=== PATIENT | female | born 1985 | race Caucasian/White ===

== ENCOUNTER 2016-06-21 07:42 | Outpatient (CLI) | payer BC | END 2016-06-21 23:59 | DX: R53.83 Other fatigue (principal); R41.2 Retrograde amnesia; R61 Generalized hyperhidrosis ==

== ENCOUNTER 2017-06-19 10:58 | Outpatient (CLI) | payer OTHER ==
[2017-06-19 11:34] LABS: BASOPHILS % (AUTO) 0.6 %; EOSINOPHILS % (AUTO) 0.9 %; HGB - HEMOGLOBIN 13.5 g/dL (12.0-16.0); LYMPHOCYTES # (AUTO) 1.6 10^3/uL (1.5-3.5); LYMPHOCYTES % (AUTO) 30.3 %; MEAN CORPUSCULAR HEMOGLOBIN 30.5 pg (27.0-31.0); MEAN CORPUSCULAR HGB CONC 33.8 g/dL (32.0-36.0); MEAN CORPUSCULAR VOLUME 90.1 fL (81.0-99.0); MEAN PLATELET VOLUME 8.9 fL (7.9-10.8); MONOCYTES # (AUTO) 0.3 10^3/uL (0.0-1.0); MONOCYTES % (AUTO) 6.3 %; NEUTROPHILS # (AUTO) 3.3 10^3/uL (1.5-6.6); NEUTROPHILS % (AUTO) 61.9 %; PLT - PLATELET COUNT 194 10^3/uL (130-450); RED BLOOD COUNT 4.43 10^6/uL (4.20-5.40); RED CELL DISTRIBUTION WIDTH 13.4 % (12.0-15.0); WHITE BLOOD COUNT 5.4 x10^3/uL (4.8-10.8)
[2017-06-20 11:01] LABS: HEPATITIS C ANTIBODY NON-REACTIVE (NON-REACTIVE)
[2017-06-20 11:02] LABS: HEPATITIS B SURFACE ANTIGEN NON-REACTIVE (NON-REACTIVE)
[2017-06-20 14:11] LABS: HIV AG/AB 4TH GEN NON-REACTIVE (NON-REACTIVE)
== END 2017-06-19 10:59 | disposition home or self-care (01) ==
LOC: LAB 10:58
PROVIDERS: ATTEND Registered Nurse
DX: O09.01 Supervision of pregnancy with history of infertility, first trimester (principal); O12.11 Gestational proteinuria, first trimester
CPT/HCPCS: 36415; 81599; 84144; 84702; 85025; 86762; 86803; 86850; 86900; 86901; 87086; 87340; 87389; 87491; 87591

== ENCOUNTER 2017-06-19 11:00 | Outpatient (CLI) | payer OTHER | END 2017-06-19 11:01 | disposition home or self-care (01) | LOC: LAB.R 11:00 | PROVIDERS: ATTEND Registered Nurse | DX: O09.01 Supervision of pregnancy with history of infertility, first trimester (principal); O12.11 Gestational proteinuria, first trimester | CPT/HCPCS: 87491; 87591 ==

== ENCOUNTER 2017-06-22 14:19 | Outpatient (CLI) | payer OTHER ==
[2017-06-22 14:44] LABS: BILIRUBIN,URINE NEGATIVE (NEGATIVE); GLUCOSE, URINE (UA) NEGATIVE (NEGATIVE); KETONES,URINE (UA) NEGATIVE (NEGATIVE); LEUKOCYTE ESTERASE, URINE TRACE (NEGATIVE); NITRITE,URINE NEGATIVE (NEGATIVE); OCCULT BLOOD,URINE NEGATIVE (NEGATIVE); PROTEIN,URINE NEGATIVE (NEGATIVE); UROBILINOGEN,URINE 0.2 (NORMAL) E.U./dL (NORMAL)
[2017-06-22 14:58] LABS: BACTERIA,URINE None Seen /HPF (None Seen); CLARITY,URINE CLEAR (CLEAR); RBC,URINE 0-5 /HPF (0-5); SQUAMOUS EPITHELIAL CELL,UR MOD Squamous (<= Few); TOTAL PROTEIN,URINE TIMED < 6 mg/dL; TOTAL VOLUME 24HRS,URINE 12050 mL
== END 2017-06-22 14:20 | disposition home or self-care (01) ==
LOC: LAB 14:19
PROVIDERS: ATTEND Registered Nurse
DX: O09.01 Supervision of pregnancy with history of infertility, first trimester (principal); O12.11 Gestational proteinuria, first trimester
CPT/HCPCS: 81001; 84156

== ENCOUNTER 2017-06-25 11:32 | Outpatient (CLI) | payer OTHER | END 2017-06-25 11:33 | disposition home or self-care (01) | LOC: DI 11:32 | PROVIDERS: ATTEND Registered Nurse | DX: R01.1 Cardiac murmur, unspecified (principal) | CPT/HCPCS: 81001; 84156; 93306 ==

== ENCOUNTER 2017-07-04 19:02 | Outpatient (CLI) | payer OTHER ==
--- NOTE | 2017-07-05 14:15 | Ultrasound Report ---
OB FIRST TRIMESTER ULTRASOUND: 07/04/2017 CLINICAL INDICATION: Dating. TECHNIQUE: Transabdominal pelvic ultrasound performed for global evaluation. Transvaginal pelvic ultrasound performed for detailed evaluation. Real-time scanning performed and static images obtained. LAST MENSTRUAL PERIOD 05/10/2017 CLINICAL AGE 7 weeks 6 days US AGE 7 weeks 3 days CRL embryo HEART RATE 167 bpm EDC 02/14/2018 US EDC 02/17/2018 CRL embryo CERVICAL LENGTH closed FINDINGS: The uterus is anteverted. There is a single viable intrauterine gestation present. heart rate is 167 BPM. By crown rump length, the fetus measures 7 weeks 3 days (7 weeks 6 days by LMP). No perigestational hemorrhage is seen. The gestational sac appears regular. The right ovary measures 4.1 x 3.2 x 1.8 cm, and demonstrates a 2 cm corpus luteum. The left ovary measures 3.1 x 2.2 x 2.0 cm, and is unremarkable. No free fluid is present. IMPRESSION: SINGLE VIABLE INTRAUTERINE GESTATION, WITH SIZE IN KEEPING WITH LMP DATING. NO PERIGESTATIONAL HEMORRHAGE. TD: 07/05/2017 12:08 CAPO
== END 2017-07-04 19:03 | disposition home or self-care (01) ==
LOC: DI 19:02
PROVIDERS: ATTEND Registered Nurse
DX: Z36.89 Encounter for other specified antenatal screening (principal)
CPT/HCPCS: 76801; 76817

== ENCOUNTER 2017-07-07 12:11 | Emergency (ER) | payer OTHER ==
[2017-07-07 14:14] LABS: BILIRUBIN,URINE NEGATIVE (NEGATIVE); GLUCOSE, URINE (UA) NEGATIVE (NEGATIVE); KETONES,URINE (UA) NEGATIVE (NEGATIVE); LEUKOCYTE ESTERASE, URINE TRACE (NEGATIVE); NITRITE,URINE NEGATIVE (NEGATIVE); OCCULT BLOOD,URINE NEGATIVE (NEGATIVE); PH,URINE 5.5 PH (5.0-7.5); PROTEIN,URINE NEGATIVE (NEGATIVE); UROBILINOGEN,URINE 0.2 (NORMAL) E.U./dL (NORMAL)
[2017-07-07 14:18] LABS: CLARITY,URINE CLEAR (CLEAR)
[2017-07-07 14:20] LABS: BACTERIA,URINE Few /HPF (None Seen); RBC,URINE 0-5 /HPF (0-5); SQUAMOUS EPITHELIAL CELL,UR MOD Squamous (<= Few)
--- NOTE | 2017-07-07 14:24 | ED Physician Documentation ---
History of Present Illness - Stated complaint Stated Complaint: FLU-LIKE [id number] - Chief complaint Chief Complaint: Abd Pain - History obtained from History obtained from: Patient, Family - History of Present Illness Timing: How many days ago (3) Pain level max: 0 Pain level now: 0 Improved by: nothing Worsened by: nothing - Additonal information Additional information: subjective fever, cough, body aches. pt is 8 weeks . . sent in for flu test by OB. Review of Systems Constitutional: reports: Myalgias. denies: Chills Ears: denies: Ear pain Cardiac: denies: Chest pain / pressure Respiratory: reports: Cough. denies: Wheezing GI: denies: Nausea, Vomiting, Diarrhea Skin: denies: Rash Musculoskeletal: denies: Neck pain, Back pain Neurologic: denies: Focal weakness, Numbness, Headache PD PAST MEDICAL HISTORY - Past Medical History Past Medical History: No : Kidney stones - Present Medications Home Medications: Ambulatory Orders Medication Instructions Recorded Confirmed No Known Home Medications [No 07/07/17 07/07/17 Known Home Medications] - Allergies Allergies/Adverse Reactions: Allergies Allergy/AdvReac Type Severity Reaction Status Date / Time No Known Drug Allergies Allergy Verified 07/07/17 12:21 - Social History Does the pt smoke?: No Smoking Status: Never smoker PD ED PE NORMAL - Vitals Vital signs reviewed: Yes - General General: Alert and oriented X 3, No acute distress - HEENT HEENT: Moist mucous membranes - Neck Neck: Supple, no meningeal sign - Cardiac Cardiac: RRR - Respiratory Respiratory: No respiratory distress, Clear bilaterally - Abdomen Abdomen: Soft, Non tender, Non distended, Other (bedside US with IUP with FHR 152bpm) - Derm Derm: Warm and dry, No rash - Extremities Extremities: No edema, No calf tenderness / cord - Neuro Neuro: Alert and oriented X 3 - Psych Psych: Normal mood, Normal affect Results - Vitals Vitals: Vital Signs - 24 hr 07/07/17 07/07/17 12:17 14:32 Temperature 36.8 C 37.2 C Heart Rate 83 65 Respiratory 18 18 Rate Blood Pressure 138/71 H 119/68 O2 Saturation 100 100 Oxygen O2 Source Room air - Labs Labs: Laboratory Tests 07/07/17 07/07/17 12:25 14:09 Urine Color YELLOW Urine Clarity CLEAR Urine pH 5.5 Ur Specific [place] 1.015 Urine Protein NEGATIVE Urine Glucose (UA) NEGATIVE Urine Ketones NEGATIVE Urine Occult Blood NEGATIVE Urine Nitrite NEGATIVE Urine Bilirubin NEGATIVE Urine Urobilinogen 0.2 (NORMAL) Ur Leukocyte Esterase TRACE H Urine RBC 0-5 Urine WBC 0-3 Ur Squamous Epith Cells MOD Squamous H Urine Bacteria Few Ur Microscopic Review INDICATED Urine Culture Comments NOT INDICATED Influenza A (Rapid) Negative Influenza B (Rapid) Negative Influenza Types A,B Ag - PD MEDICAL DECISION MAKING - ED course Complexity details: reviewed results, re-evaluated patient, considered differential, d/w patient, d/w family ED course: Patient is a 31-year-old female, 1 para 0 approximately 8 weeks who presents to the emergency department with viral syndrome symptoms. Influenza swabs are negative. Urinalysis is clean. She is very well- appearing, nontoxic. No hypoxia. No respiratory distress. We will continue supportive care and follow-up with her doctor. Patient counseled regarding signs and symptoms for which I believe and urgent re-evaluation would be necessary. Patient with good understanding of and agreement to plan and is comfortable going home at this time This document was made in part using voice recognition software. While efforts are made to proofread this document, sound alike and grammatical errors may occur. Departure - Departure Disposition: 01 Home, Self Care Clinical Impression: Viral syndrome Condition: Good Instructions: ED Viral Syndrome Follow-Up: Jus Cottrell, EDIE, MICHELLE [Provider Admit Priv/Credential] - Shawanda Alejandra ARNP [Primary Care Provider] - Within 1 week Comments: Return if you worsen. You flu test is negative today. You can use tylenol at home for fevers. Discharge Date/Time: 07/07/17 14:32
[2017-07-07 14:32] VITALS: BP 119/68
== END 2017-07-07 14:32 | disposition home or self-care (01) ==
LOC: ED 12:11
DX: O26.891 Other specified pregnancy related conditions, first trimester (principal); B34.9 Viral infection, unspecified; Z3A.08 8 weeks gestation of pregnancy
CPT/HCPCS: 81001; 81003; 87086; 87275; 87276; 99282; 99283

== ENCOUNTER 2017-09-25 07:22 | Outpatient (CLI) | payer OTHER ==
--- NOTE | 2017-09-25 16:03 | Ultrasound Report ---
OB ULTRASOUND: 09/25/2017 CLINICAL INDICATION: anatomy. TECHNIQUE: Real-time scanning was performed with scheduling representative static images obtained. LAST MENSTRUAL PERIOD: 05/13/2017 Clinical Age: 19 weeks 2 days US Age: 19 weeks 4 days EFW [place]: 303 grams EFW% Hadlock: 65% Heart Rate: 140 bpm EDC: 02/17/2018 US EDC: 02/15/2018 BPD Had[place]: 19 weeks 2 days; Mean mm 44 HC Hadlock: 19 weeks 4 days; Mean mm 170 AC Hadlock: 19 weeks 3 days; Mean mm 141 FL Hadlock: 19 weeks 6 days; Mean mm 32 Presentation: variable Placental Location: anterior Cervical Length: TA 3.8 cm Amniotic Fluid: NICK 6.3 cm; MVP 3.0 FINDINGS: There is a single viable intrauterine gestation, in variable position. heart rate is 140 BPM. The placenta is anterior, without evidence of previa. Amniotic fluid volume is at the low end of normal, with an NICK of 9.3. By size, the fetus measures 19 weeks 4 days (19 weeks 2 days by initial ultrasound). ANATOMY The following anatomic structures were visualized and appear normal: The intracranial contents, including the ventricles and posterior fossa; the lips and orbits; the spine; the heart, including 4 chamber view and outflow tracts, and diaphragm; the abdominal contents, including the stomach, the bilateral kidneys, and urinary bladder, as well as a normal 3 vessel cord insertion; 4 limbs. No free fluid or adnexal lesion is appreciated. IMPRESSION: SINGLE VIABLE INTRAUTERINE GESTATION, WITH EXPECTED GROWTH FROM PREVIOUS SONOGRAM. NORMAL ANATOMIC SURVEY. TD: 09/25/2017 09:57 [facility]
== END 2017-09-25 07:23 | disposition home or self-care (01) ==
LOC: DI 07:22
PROVIDERS: ATTEND Registered Nurse
DX: Z34.82 Encounter for supervision of other normal pregnancy, second trimester (principal); Z3A.19 19 weeks gestation of pregnancy
CPT/HCPCS: 76811

== ENCOUNTER 2017-11-06 15:32 | Outpatient (CLI) | payer OTHER ==
[2017-11-06 15:44] LABS: HGB - HEMOGLOBIN 11.9 g/dL (12.0-16.0); MEAN CORPUSCULAR HEMOGLOBIN 31.2 pg (27.0-31.0); MEAN CORPUSCULAR HGB CONC 33.2 g/dL (32.0-36.0); MEAN CORPUSCULAR VOLUME 94.1 fL (81.0-99.0); MEAN PLATELET VOLUME 8.4 fL (7.9-10.8); RED BLOOD COUNT 3.82 10^6/uL (4.20-5.40); RED CELL DISTRIBUTION WIDTH 13.1 % (12.0-15.0); WHITE BLOOD COUNT 8.4 x10^3/uL (4.8-10.8)
== END 2017-11-06 15:33 | disposition home or self-care (01) ==
LOC: LAB 15:32
PROVIDERS: ATTEND Nurse Practitioner Obstetrics & Gynecology
DX: Z36.9 Encounter for antenatal screening, unspecified (principal)
CPT/HCPCS: 36415; 85027; 86850

== ENCOUNTER 2017-11-20 11:15 | Outpatient (CLI) | payer OTHER | END 2017-11-20 11:16 | disposition home or self-care (01) | LOC: LAB 11:15 | PROVIDERS: ATTEND Nurse Practitioner Obstetrics & Gynecology | DX: Z36.9 Encounter for antenatal screening, unspecified (principal) | CPT/HCPCS: 36415; 82950 ==

== ENCOUNTER 2018-01-17 10:58 | Outpatient (CLI) | payer OTHER | END 2018-01-17 10:59 | disposition home or self-care (01) | LOC: LAB.R 10:58 | PROVIDERS: ATTEND Nurse Practitioner Obstetrics & Gynecology | DX: Z36.85 Encounter for antenatal screening for Streptococcus B (principal) | CPT/HCPCS: 87077; 87081 ==

== ENCOUNTER 2018-02-12 07:55 | Inpatient (IN) | payer OTHER ==
[2018-02-12] MEDS ORDERED: SODIUM CHLORIDE FLUSH 0.9% 10 ML SYRINGE ONE (08:01)
[2018-02-12] MEDS ORDERED: ACETAMINOPHEN 325 MG TABLET PO PRN (09:00)
[2018-02-12] MEDS ORDERED: SODIUM CHLORIDE FLUSH 0.9% 10 ML SYRINGE IVP PRN (09:00)
[2018-02-12] MEDS ORDERED: LACTATED RINGERS 1,000 ML IV SCH (09:00)
[2018-02-12] MEDS ORDERED: fentaNYL 100 MCG/2 ML VIAL IVP PRN (09:00)
[2018-02-12 09:27] LABS: BASOPHILS % (AUTO) 0.2 %; EOSINOPHILS # (AUTO) 0.1 10^3/uL (0.0-0.7); HGB - HEMOGLOBIN 12.5 g/dL (12.0-16.0); LYMPHOCYTES # (AUTO) 1.4 10^3/uL (1.5-3.5); LYMPHOCYTES % (AUTO) 17.5 %; MEAN CORPUSCULAR HEMOGLOBIN 30.9 pg (27.0-31.0); MEAN CORPUSCULAR HGB CONC 34.8 g/dL (32.0-36.0); MEAN CORPUSCULAR VOLUME 88.9 fL (81.0-99.0); MEAN PLATELET VOLUME 9.3 fL (7.9-10.8); MONOCYTES # (AUTO) 0.5 10^3/uL (0.0-1.0); MONOCYTES % (AUTO) 6.2 %; NEUTROPHILS # (AUTO) 6.2 10^3/uL (1.5-6.6); NEUTROPHILS % (AUTO) 75.1 %; PLT - PLATELET COUNT 184 10^3/uL (130-450); RED BLOOD COUNT 4.06 10^6/uL (4.20-5.40); RED CELL DISTRIBUTION WIDTH 13.5 % (12.0-15.0); WHITE BLOOD COUNT 8.2 x10^3/uL (4.8-10.8)
[2018-02-12] MEDS ORDERED: PENICILLIN G POTASSIUM 5,000,000 UNIT in SODIUM CHLORIDE 0.9% MINIBAG 100 ML IV ONE (09:30)
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
[2018-02-12] MEDS: miSOPROStol 100 MCG TABLET BC SCH ×3 (13:38→22:53)
[2018-02-12] MEDS: SODIUM CHLORIDE FLUSH 0.9% 10 ML SYRINGE IVP SCH ×3 (13:39→19:04)
[2018-02-12] MEDS: PENICILLIN G POTASSIUM 2,500,000 UNIT in SODIUM CHLORIDE 0.9% 100ML 100 ML IV SCH ×3 (14:59→22:53)
[2018-02-12] MEDS ORDERED: ZOLPIDEM 5 MG TABLET PO ONE (19:00)
[2018-02-13] MEDS: miSOPROStol 100 MCG TABLET BC SCH ×4 (06:33→20:02)
--- NOTE | 2018-02-13 07:55 | PROVIDER PROGRESS NOTE ---
Labor Progress Note - Uterine Monitoring Uterine Monitoring Mode: positive: External toco Contraction Frequency (min/apart): 2-6 Contraction Intensity: positive: Mild Uterine Resting Tone: positive: Soft - Monitoring Monitor Mode: positive: External ultrasound Heart Rate Baseline: 135 Heart Rate Variability: positive: Moderate (6-25 bmp) Accelerations: positive: Present, 15x15 Decelerations: positive: None Strip Review: positive: Category I - Labor Progress Note Labor Progress Note/Additional Text: S: Laying right side in bed with supportive at the bedside. She states she is feeling some mild discomfort with contractions and is able to appreciate each contractions. She feels she is coping well. Pt reports significant discomfort at IV site. She states the site of her IV is more uncomfortable than any contraction. Overall mood is good. Declines SVE secondary to degree of discomfort with first examination. Denies VB or Lof. Reports +FM. O: BP 112/67, HR 77, RR 17 FHR baseline 135, moderate variability, + accels, no decels. Contractions palpate mild every 2-6 minutes with soft resting tone. SVE deferred A: 32yo @ 40.0wks gestation by first trimester ultrasound Pre-induction cervical ripening with 50mcg BC misoprostol q 4 hours x 3 doses GBS positive - receiving penicillin via IV for prophylaxis per protocol P: Will attempt secondary IV placement due to significant patient discomfort Will d/c penicillin infusion until onset of active labor due to significant patient discomfort during infusion Continue pre-induction cervical ripening with 50mcg misoprostol q 4 hours Continuous monitoring Reviewed plan of care with patient, , and RN assigned to her care and no concerns or complaints identified. N2O with SVE prior to next dose of misoprostol Epidural per maternal request. Anticipate spontaneous vaginal delivery.
--- NOTE | 2018-02-13 16:30 | PROVIDER PROGRESS NOTE ---
Labor Progress Note - Uterine Monitoring Uterine Monitoring Mode: positive: External toco Contraction Frequency (min/apart): 3-5 Contraction Intensity: positive: Mild Uterine Resting Tone: positive: Soft - Monitoring Monitor Mode: positive: External ultrasound Heart Rate Baseline: 140 Heart Rate Variability: positive: Moderate (6-25 bmp) Accelerations: positive: Present, 15x15 Decelerations: positive: None Strip Review: positive: Category I - Vaginal Exam Dilation (in cm): 3 Effacement (%): 50 Station: -3 Cervical Position: Posterior - Labor Progress Note Labor Progress Note/Additional Text: S: Pt laying in bed with and agricultural consultant supportive at the bedside. She has questions about how to proceed at this point in the induction process. States she is considering epidural and initiation of pitocin vs continuation of misoprostol and taking Ambien tonight for improved sleep. Pt states her inability to sleep last night was largely due to discomfort at IV site as penicillin was infusing. She feels she will sleep better tonight with deferring the penicillin infusion until active labor or initiation of pitocin. Lengthy discussion about most appropriate course of action at this point. All options reviewed and pt and desire to continue with misoprostol and PO Ambien tonight. She states she knows they were prepped and prepared to have a prolonged stay secondary to cervical ripening but she feels somewhat discouraged with her progress thus far despite nursing and provider reassurance about her progression. O: BP 118/82, HR 119, RR 17 Contractions palpate mild every 2-5 minutes lasting 30-60 seconds with soft resting tone. FHR baseline 145, moderate variability, + accels, no decels SVE 3/50/-3, vertex, posterior, soft A: 32yo @ 39.6wks gestation by LMP c/w first trimester ultrasound Pre-induction cervical ripening with 50mcg BC misoprostol q 4 hours x 6 doses GBS positive - penicillin for GBS prophylaxis per protocol - Pt received 1 loading dose followed by 4 additional doses per protocol -subsequent doses deferred until active labor or SROM secondary to significant IV irritation Category I FHR P: Continue pre-induction cervical ripening with 50mcg BC misoprostol q 4 hours throughout the night. Hold AM dose for patient evaluation by provider. Will likely proceed with epidural placement and colindres bulb vs initiation of pitocin Continuous monitoring. N2O per patient request for pain management. Pt, , agricultural consultant, and RN at the bedside all verbalized understanding and agree to above plan. They deny further questions or concerns today.
[2018-02-13] MEDS ORDERED: ZOLPIDEM 5 MG TABLET PO ONE (19:00)
--- NOTE | 2018-02-13 22:29 | PROVIDER PROGRESS NOTE ---
Labor Progress Note - Uterine Monitoring Uterine Monitoring Mode: positive: External toco Contraction Frequency (min/apart): 2-5 Contraction Intensity: positive: Moderate Uterine Resting Tone: positive: Soft - Monitoring Monitor Mode: positive: External ultrasound Heart Rate Baseline: 150 Heart Rate Variability: positive: Moderate (6-25 bmp) Accelerations: positive: Present, 15x15 Decelerations: positive: None Strip Review: positive: Category I - Labor Progress Note Labor Progress Note/Additional Text: S: Pt sitting at bedside on exercise ball with and president ergonomic consulting supportive at the bedside. Pt reported a gush of clear vaginal fluid at 2054. She desires to use Jacuzzi prior to receiving epidural for pain management. Pt desires to labor unmedicated at this time and will consider epidural for pain management with initiation of pitocin per protocol. O: BP 118/82, HR 119, RR 17 Contractions palpate moderate every 2-5 minutes lasting 40-60 seconds with soft resting tone FHR baseline 150, moderate variability, + accels, no decels SVE deferred A: 32yo @ 39.6wks gestation by L=first trimester U/S GBS positive -initiation of penicillin per protocol for prophylaxis Has received misoprostol 50mcg BC q 4 hours for pre-induction cervical ripening x 7 doses for adequate cervical ripening P: Continuous monitoring Initiation of pitocin with titration per protocol 4 hours after last dose of misoprostol Encouraged ambulation and frequent position changes. Epidural per maternal request. Anticipate spontaneous vaginal delivery.
[2018-02-13] MEDS ORDERED: fent/BUPIV 2 MCG/0.125% 250 ML EP ONE (23:20)
--- NOTE | 2018-02-14 00:25 | ANESTHESIA ---
Pre-Anesthesia VS, & Labs - Diagnosis IUP term labor desiring epidural - Procedure Lumbar Epidural Placement Vital Signs: Temp Pulse Resp BP Pulse Ox 36.6 C 77 17 112/67 02/13/18 05:00 02/13/18 05:00 02/13/18 05:00 02/13/18 05:00 Height 5 ft 6 in Weight (kg) 100.698 kg Body Mass Index 25.8 - Is Patient ?: Yes - Lab Results Current Lab Results: Laboratory Tests 02/12/18 09:00: WBC 8.2, RBC 4.06 L, Hgb 12.5, Hct 36.1 L, MCV 88.9, MCH 30.9, MCHC 34.8, RDW 13.5, Plt Count 184, MPV 9.3, Neut # (Auto) 6.2, Lymph # (Auto) 1.4 L, [place] # (Auto) 0.5, Eos # (Auto) 0.1, Baso # (Auto) 0.0, Absolute Nucleated RBC 0.00, Nucleated RBC % 0.0 Fish Bones: 02/12/18 09:00 Home Medications and Allergies Home Medications: Ambulatory Orders Medication Instructions Recorded Confirmed No Known Home Medications 07/07/17 07/07/17 Active Medications Acetaminophen (Tylenol) 650 mg PO Q6H PRN PRN Reason: Pain or Fever Fentanyl (Fentanyl) 50 mcg IVP Q1H PRN PRN Reason: PAIN Lactated Ringer's (Lr) 1,000 mls @ 100 mls/hr IV .Q10H BERNARDO Penicillin G Potassium 2,500, (000 unit/ Sodium Chloride) 100 mls @ 200 mls/hr IV Q4H [facility] Last Infusion: 02/13/18 07:40 Dose: Infused Misoprostol (Cytotec) 50 mcg BC Q4HR [facility] Last Admin: 02/13/18 20:02 Dose: 50 mcg Sodium Chloride (Normal Saline Flush 0.9%) 10 ml IVP 0100,0900,1700 [facility] Last Admin: 02/12/18 19:04 Dose: 10 ml Sodium Chloride (Normal Saline Flush 0.9%) 10 ml IVP PRN PRN PRN Reason: NEEDED PER PROVIDER ORDERS No Known Home Medications 07/07/17 Allergies/Adverse Reactions: Allergies Allergy/AdvReac Type Severity Reaction Status Date / Time No Known Drug Allergies Allergy Verified 07/07/17 12:21 Anes History & Medical History - Anesthetic History Anesthesia Complications: reports: No previous complications Family history of Anesthesia Complications: Denies Family history of Malignant Hyperthermia: Denies - Medical History Cardiovascular: reports: None Pulmonary: reports: None Gastrointestinal: reports: None Urinary: reports: Kidney stones Smoking Status: Never smoker - Surgical History Urologic: Ureterolithotomy (stones) Orthopedic: Other (knee scope) - Obstetrical History : 1 Parity: 0 Events: positive: None Exam General: Alert, Oriented x3, Cooperative, No acute distress Neck Mobility: Normal Mallampati classification: II Cardiovascular: Regular rate Plan Anesthesia Type: Epidural Consent for Procedure(s) Verified and Reviewed: Yes Code Status: Attempt Resuscitation ASA classification: 2-Mild systemic disease Is this case an emergency?: No
[2018-02-14] MEDS ORDERED: NALBUPHINE 10 MG/ML AMP IVP PRN (00:32)
[2018-02-14] MEDS ORDERED: fent/BUPIV 2 MCG/0.125% 250 ML EP PRN (00:32)
[2018-02-14] MEDS ORDERED: ONDANSETRON 4 MG/2 ML VIAL IVP PRN (00:32)
[2018-02-14] MEDS ORDERED: NALOXONE 0.4 MG/ML VIAL IVP PRN (00:32)
[2018-02-14] MEDS ORDERED: ePHEDrine 50 MG/ML VIAL IVP PRN (00:32)
[2018-02-14] MEDS ORDERED: METOCLOPRAMIDE 10 MG/2 ML VIAL IVP PRN (00:32)
[2018-02-14] MEDS ORDERED: LACTATED RINGERS 500 ML IV ONE (00:32)
[2018-02-14] MEDS ORDERED: diphenhydrAMINE INJ 50 MG/ML VIAL IVP PRN (00:32)
[2018-02-14] MEDS: PENICILLIN G POTASSIUM 2,500,000 UNIT in SODIUM CHLORIDE 0.9% 100ML 100 ML IV SCH ×2 (01:22→05:13)
[2018-02-14] MEDS ORDERED: LIDOCAINE 2% URO-JET 5 ML SYRINGE UR ONE (01:36)
[2018-02-14] MEDS ORDERED: OXYTOCIN/SODIUM CHLORIDE 500 ML IV ONE (04:13)
[2018-02-14] MEDS ORDERED: LIDOCAINE 1% 50 ML MDV ONE (04:13)
--- NOTE | 2018-02-14 04:44 | PROVIDER PROGRESS NOTE ---
Labor Progress Note - Uterine Monitoring Uterine Monitoring Mode: positive: External toco Contraction Frequency (min/apart): 2-3 Contraction Intensity: positive: Strong Uterine Resting Tone: positive: Soft - Monitoring Monitor Mode: positive: External ultrasound Heart Rate Baseline: 140 Heart Rate Variability: positive: Minimal (0-5 bpm) Accelerations: positive: Absent Decelerations: positive: None Strip Review: positive: Category I - Vaginal Exam Dilation (in cm): 10 Effacement (%): 100 Station: 0 - Labor Progress Note Labor Progress Note/Additional Text: I was called to the bedside by OB RN secondary to patient discomfort and difficulty coping with contractions in addition to recurrent variable and late decelerations with periods of minimal variability. Richard Jones CRNA at the bedside working to achieve adequate pain control with second epidural placement. Upon my arrival patient was more comfortable with epidural and able to cope with her contractions more effectively. S: Patient more comfortable with repositioning and second epidural placement. She has been able to rest through contractions with greater ease. She states she is feeling "out of it" and is hoping to be able to nap prior to active pushing. and dictating machine typist supportive at the bedside. O: BP 103/62, HR 84, RR 17; Pt appears groggy. FHR baseline 140, moderate variability with intermittent periods of minimal variability. Periods of Category II tracing secondary to decreased variability and recurrent late and variable decelerations - overall reassuring. Contractions palpate strong every 2-4 minutes lasting 60-120 seconds with soft resting tone. SVE 10/100/0 at 0400 A: 32yo @ 40.0wks gestation by LMP Active labor GBS positive FHR Category I with intermittent periods of Category II - overall reassuring P: Continue expectant management and allow patient to labor down secondary to maternal desire and fatigue Continuous monitoring Anticipate spontaneous vaginal delivery.
[2018-02-14] MEDS ORDERED: HYDROCORTISONE/PRAMOXINE 10 GM PR PRN (08:48)
[2018-02-14] MEDS ORDERED: OXYTOCIN/SODIUM CHLORIDE 250 ML IV ONE (08:48)
--- NOTE | 2018-02-14 09:05 | DELIVERY NOTE ---
Delivery Note - Labor Labor: positive: Other - Infant Delivery Method Delivery Method: positive: Spontaneous vaginal delivery - Presentation Presentation: positive: Vertex, JUAN JOSE - left occiput anterior - Nuchal Cord Nuchal Cord: positive: Present, Reduced - Amniotic Fluid Description Amniotic Fluid Description: positive: Clear - Episiotomy Type Episiotomy Type: positive: None - Laceration Laceration: positive: 1st degree - Suture Suture Type: positive: Vicryl Suture Size: positive: 3-0 - Delivery Outcome Delivery Outcome: positive: Livebirth - : positive: Placed in direct skin contact with mother, Bulb syringe, Stimulated, Warren used sex: positive: Female - Cord Cord: positive: 3 vessels - Placenta Placenta: positive: Intact, Spontaneous - Estimated Blood Loss Estimated Blood Loss (in cc): 200 - Post Delivery Events Post Delivery Events: positive: No post delivery events - Delivery Comments (Free Text/Narrative) Delivery Comments (Free Text/Narrative): Labor: This 32yo @ 40.0wks gestation by LMP presented on 02/12/2018 0800 for logistic IOL. Cervix was 1/50/-3, posterior, vertex. FHR pattern demonstrated a baseline 140s in a Category I pattern throughout. She received 50mcg BC misoprostol q 4 hours for a total of 7 doses. In addition she received penicillin q 4 hours for GBS prophylaxis per protocol. SROM occurred at 2044 on 02/13/2018 and was noted to be a moderate amount of clear fluid. Epidural placed upon maternal request. Pt progressed to c/c/0 station at 0400. She was allowed to labor down until 0625 when she felt increased vaginal and rectal pressure and head was noted to be at a +2 station. : Normal of viable female named Chadwick on 02/14/2018 at 0826. Nuchal x1 easily reduced. The was placed on maternal abdomen, stimulated, dried, and placed skin to skin. 's were 8/9 at 1 and 5 min respectively. The umbilical cord was allowed to stop pulsating at which time it was doubly clamped by CNM and cut by FOB. Cord blood was obtained. Placenta delivered spontaneously and intact at 0831. 3VC. EBL 200mL. Fourth stage: Uterine fundus firm and there is no excessive bleeding. The perineum, vagina, and cervix were inspected and noted to have a small, 1cm vaginal laceration immediately inside introitus. Laceration was repaired using a 3-[address]-1 needle in standard fashion under sterile conditions. Vaginal examination following repair was done. Tissues well approximated. initiated. Family bonding well. Both mother and baby were left in stable condition.
[2018-02-14] MEDS: ACETAMINOPHEN 500 MG TABLET PO PRN ×2 (09:30→18:04)
[2018-02-14] MEDS: IBUPROFEN 800 MG TABLET PO SCH ×3 (09:30→21:21)
[2018-02-14] MEDS: SODIUM CHLORIDE FLUSH 0.9% 10 ML SYRINGE IVP SCH ×3 (10:31→11:07)
[2018-02-14] MEDS: WITCH HAZEL/GLYCERIN 1 EACH MED..PAD TOP PRN (10:36)
[2018-02-14] MEDS: LACTATED RINGERS 1,000 ML IV SCH ×2 (11:07→19:01)
[2018-02-14] MEDS: CYCLOBENZAPRINE 10 MG TABLET PO PRN (19:15)
[2018-02-15] MEDS: ACETAMINOPHEN 500 MG TABLET PO PRN ×4 (00:18→19:17)
[2018-02-15] MEDS: CYCLOBENZAPRINE 10 MG TABLET PO PRN ×3 (03:25→19:17)
[2018-02-15] MEDS: IBUPROFEN 800 MG TABLET PO SCH ×3 (07:16→19:17)
[2018-02-15] MEDS: SODIUM CHLORIDE FLUSH 0.9% 10 ML SYRINGE IVP SCH ×3 (07:44→18:40)
[2018-02-15] MEDS: LACTATED RINGERS 1,000 ML IV SCH ×2 (07:46→18:40)
[2018-02-15] MEDS ORDERED: RHO(D) IMMUNE GLOBULIN 300 MCG SYRINGE IM ONE (09:59)
[2018-02-15] MEDS ORDERED: MEASLES,MUMPS & RUBELLA VACC 0.5 ML VIAL SUBQ ONE (09:59)
--- NOTE | 2018-02-15 10:00 | Discharge Plan ---
Discharge Plan Disposition: 01 Home, Self Care Condition: Good Diet: Regular Activity Restrictions: No Restrictions Shower Restrictions: No Driving Restrictions: No Weight Bearing: Full Weight No Smoking: If you smoke, Please STOP! Call for help. Follow-up with: Cheyenne Chinchilla CNM, ARNP [Provider Admit Priv/Credential] -
--- NOTE | 2018-02-15 10:06 | PROVIDER PROGRESS NOTE ---
Subjective - Subjective Subjective: FINAL PROGRESS NOTE: S: Bonding well with baby. without difficulty with the exception of moderate nipple discomfort which improves throughout feed. Bleeding decreased and is light. Pain well controlled with oral medications other than she c/o significant neck and shoulder discomfort which required flexaril with improvement. Perineum comfortable. Allan supportive at the bedside. They desire to be discharged home today. O: BP 110/58, T 36.6, HR 81, RR 16 Heart RRR w/o M/G/R, lungs CTAB, abdomen soft and nontender with fundus firm at U-1. Bilateral LE's trace edema. Perineum intact and repair without edema. A: 32yo -->P1 s/p TSVD of viable female infant First degree perineal laceration - intact GBS positive - s/p penicillin per protocol for GBS prophylaxis Rh neg - infant Rh pos MMR equivocal P: Reviewed care and warning signs/when to present for further evaluation Rx for All purpose nipple ointment and flexaril handwritten and provided to pt Rhogam and MMR vaccination ordered to be administered prior to pt discharge Planning to use condoms for contraception Will f/u with myself at [facility] in 1 week for support visit, in 3 weeks for routine visit, and in 8 weeks for [place] well woman exam. All questions answered and pt and both verbalized understanding and agree to above plan. They deny further questions or concerns at this time. Objective - Vital Signs/Intake & Output Vital Signs: Vital Signs x48h Temp Pulse Resp BP Pulse Ox 02/15/18 08:09 36.6 C 81 16 110/58 L 100 02/15/18 03:16 36.6 C 78 16 117/64 99 Intake & Output: Intake & Output 02/12/18 02/13/18 02/14/18 02/15/18 23:59 23:59 23:59 23:59 Intake Total 300 600 950 Output Total 1950 Balance 300 600 -1000 - Lab Results Fish Bones: 02/12/18 09:00 Other Labs: Lab Results x24hrs 02/14/18 Range/Units 11:50 Blood Type O NEGATIVE Maternal Bleed NEGATIVE (NEGATIVE)
[2018-02-15] MEDS: WITCH HAZEL/GLYCERIN 1 EACH MED..PAD TOP PRN (22:21)
[2018-02-16] MEDS: IBUPROFEN 800 MG TABLET PO SCH ×3 (01:50→13:56)
[2018-02-16] MEDS: ACETAMINOPHEN 500 MG TABLET PO PRN ×3 (01:51→13:55)
[2018-02-16] MEDS: CYCLOBENZAPRINE 10 MG TABLET PO PRN (03:22)
--- NOTE | 2018-02-16 08:02 | DISCHARGE SUMMARY ---
Physician: MICHELLE Ruelas DATE OF ADMISSION: 02/13/2018 DATE OF DISCHARGE: 02/16/2018 DIAGNOSES ON ADMISSION 1. A 32-year-old, G1, P-0-0-0, at 39 and 5 weeks' gestation by first trimester ultrasound. 2. Rh negative. 3. Group B streptococcus (GBS) positive. 4. Logistic induction of labor. DIAGNOSES ON DISCHARGE 1. A 32-year-old, G1, P1-0-0-1, status post spontaneous vaginal delivery on 02/15/2018. 2. RhoGAM and MMR administered 02/15/2018. 3. Normal recovery. BRIEF HISTORY: She is a patient at [facility], who presented on 02/12/2018, for elective induction of labor. Upon arrival, her cervix was noted to be 1 cm dilated, 50% effaced, at a -3 station, in a vertex position. She received pre-induction cervical ripening with 50 mcg of buccal misoprostol every 4 hours for a total of 7 doses. She also received penicillin per protocol for GBS prophylaxis. Spontaneous rupture of membrane occurred at 2045 on 02/13/2018. Epidural placed upon maternal request. The patient progressed to complete and pushing at 0400 on 02/14/2018. She spontaneously delivered a viable female infant, named Espinoza, on 02/14/2018 at 0826. Apgars were 8 and 9 at one and five minutes respectively. The perineum, vagina, and cervix were inspected and noted to have a first-degree laceration, which was repaired, using a 3-0 Vicryl on a CT1 needle, in a standard fashion under sterile conditions. Estimated blood loss 200 mL. She has been doing well in her course. She is ambulating and tolerating a regular diet. She is urinating without difficulty, and her lochia is normal. Pain is well controlled with oral medications. She is having some increased neck and shoulder discomfort, likely secondary to second stage. She will be discharged home today on day #1 with instructions to call if she has any worsening fevers, chills, abdominal pain, foul smelling vaginal lochia, increased vaginal bleeding. She intends to follow up with myself at [facility] in 1 week for support visit and then in 3 weeks for routine visit. Prescriptions for all-purpose nipple ointment and Flexeril handwritten and provided to the patient. is supportive at the bedside and present for discharge instructions. Both the patient and verbalized understanding and agree to above plan, and they deny further questions or concerns at this time. TD: 02/15/2018 10:18 REVISED: CORRECTION TO DISCHARGE DATE REMOVAL OF TERRITORY ACCOUNT MANAGER FLAG 02/19/18 jll Orig. signed 02/16/2018 1009 MTDD
--- NOTE | 2018-02-16 11:33 | PROVIDER PROGRESS NOTE ---
Subjective - Subjective Subjective: FINAL PROGRESS NOTE: S: Pt decided to stay a second night secondary to maternal head and neck discomfort. She was evaluated by construction project coordinator anesthesia yesterday to f/o spinal headache and it was determined that the cause of her discomfort was likely muscular. Flexaril has not improved her discomfort. Pt states her headache resolved when she lays horizontal and is unbearable when she is sitting up. She denies visual disturbances and edema. without difficulty. Vaginal beeding decreased and is light. Perineum comfortable. Mood is good. supportive at the bedside. O: BP 127/82, T 36.8, HR 77, RR 16 Heart RRR w/o M/G/R, lungs CTAB, abdomen soft and nontender with fundus firm at U-2. Perineum comfortable. Bilateral LE"s no edema. A: 32yo -->P1 PPD#2 s/p TSVD of viable female infant first degree perineal laceration - intact Spinal headache evaluation and treatment pending P: Reviewed self care and warning s/sx and when to present. Zane Alfonso CRNA notified and plans to come evaluate the patient for spinal headache and debt counselor her about blood patch. Pt and feel they would like to try the blood patch. She intends to f/u with myself at [facility] in 1 week for support visit and in 3 weeks for routine pp visit. Objective - Vital Signs/Intake & Output Vital Signs: Vital Signs x48h Temp Pulse Resp BP Pulse Ox 02/16/18 08:00 36.8 C 77 16 127/82 H 98 Intake & Output: Intake & Output 02/13/18 02/14/18 02/15/18 02/16/18 23:59 23:59 23:59 23:59 Intake Total 600 950 Output Total 1950 Balance 600 -1000 - Lab Results Fish Bones: 02/12/18 09:00
[2018-02-16 13:38] VITALS: BP 132/75
--- NOTE | 2018-02-16 15:58 | Labor Flowsheet ---
Labor Flowsheet Datetime Report Generated by CPN: 02/16/2018 15:58 Datetime: 02/16/2018 13:40 VITAL SIGNS NBP Sys/Blanca/Mean (mmHg): 133 : 76 : 89 Pulse: 71 LaborFlag: Labor Datetime: 02/16/2018 13:39 SpO2 (%): 99 Datetime: 02/14/2018 08:26 UTERINE ACTIVITY Monitor Mode: External Frequency (min): 1.5-2.5 Quality: Strong Duration (sec): 70-100 Pattern: Normal: <= 5 Contractions in 10 Minutes Resting Tone (Palpate): Relaxed ASSESSMENT A Monitor Mode: External US FHR Baseline Rate : 150 Variability: Moderate 6-25 bpm Accelerations: None Decelerations: Variable Datetime: 02/14/2018 08:20 STAGE 2 Pushing: Coached on Pushing Pushing Position: Pushing with Contractions Datetime: 02/14/2018 08:10 Pushing Progress: Caput Noted Datetime: 02/14/2018 08:00 Category: Category II Datetime: 02/14/2018 07:24 COMMUNICATION Communication: RN at Bedside Communication Comments: Report given to Susie, RN @ bedside Datetime: 02/14/2018 07:00 PAIN Pain Scale: 5 Pain Presence: Intermittent Pain Type: Contraction Pain Location: Perineum Datetime: 02/14/2018 06:34 VAGINAL EXAM Dilatation (cm): 10.0 Effacement (%): 100 Station: 2 Exam by: A. Renée, CNM Datetime: 02/14/2018 06:28 Notification Reason: Labor Status Datetime: 02/14/2018 06:16 Pain Coping: Breathing Through Contractions Pain Assessment Comments: Increase lower pressure Datetime: 02/14/2018 06:06 Monitor Interventions for UA: [place] Adjusted Datetime: 02/14/2018 05:53 Vaginal Exam Comments: Called to bedside d/t increased pressure and feel to have bowel movement. Pr actice pushed w/ctx. Pt unable to move babys head when pushing. continuing to labor down Datetime: 02/14/2018 05:35 Patient Care Comments: Pt sitting high fowlers with legs butterflied Datetime: 02/14/2018 05:23 Pain Goal: 8 Comfort Measures: Breathing/Relaxation Datetime: 02/14/2018 05:21 I/O Interventions: Straight Cath (ml) @ 225 Datetime: 02/14/2018 05:00 Vibroacoustic Stim: Datetime: 02/14/2018 04:52 MEDICATIONS Antiemetics/Antacids: Zofran (mg) @ 4 Datetime: 02/14/2018 04:00 Temperature (C): 36.8 Temperature Route: Oral Comments: deceleration after laying on back for SVE Datetime: 02/14/2018 03:46 Patient Position/Activity: Right Lateral Datetime: 02/14/2018 03:40 Epidural Procedure: Loading Dose Datetime: 02/14/2018 03:20 ANESTHESIA Anesthesia Plans: Epidural Epidural Positioning: Sitting Datetime: 02/14/2018 03:05 Pain Management: Epidural; Pain Scale/Goals; Comfort Measures Datetime: 02/14/2018 01:00 Actions for Decelerations: Side to Side; IV Bolus Datetime: 02/14/2018 00:42 Anesthesia Comments: Notified provider of pts nausea and low BP, ephedrine given Datetime: 02/14/2018 00:39 Nausea/Vomiting: Present Datetime: 02/14/2018 00:29 Anesthesia Level Check: T8- Ribs Datetime: 02/14/2018 00:17 Monitor Interventions for FHR: Ultrasound Adjusted Datetime: 02/13/2018 22:45 PATIENT CARE IV/Blood Work: IV Started Datetime: 02/13/2018 21:44 Hygiene: Complete Bath Datetime: 02/13/2018 21:35 Stage of : Labor Datetime: 02/13/2018 21:30 Pain Relief Measures: Comfort Measures Datetime: 02/13/2018 21:26 Provider Reviewed Strip: Yes Datetime: 02/13/2018 20:46 Membrane Status: Ruptured Membranes Rupture Method: Spontaneous Amniotic Fluid Color: Clear Amniotic Fluid Amount: Small Datetime: 02/13/2018 20:04 Cervical Ripening Agents: Cytotec @ 50 Datetime: 02/13/2018 19:59 MATERNAL ASSESSMENT Level of Consciousness: Fully Conscious DTR's/Clonus: DTRs 2+; No Clonus Headache: Denies Breath Sounds, Left: Clear and Equal Breath Sounds, Right: Clear and Equal RUQ Epigastric Pain: Denies TEACHING Instructional Method: Verbal Plan of Care: Plan of Care Discussed Datetime: 02/13/2018 19:54 Oxygen Method: Room Air Datetime: 02/13/2018 19:27 FHR Baseline Changes: Tachycardia Datetime: 02/13/2018 19:01 Contraction Comments: inverted ctx Datetime: 02/13/2018 15:51 Cervix, Consistency: Soft Cervix, Position: Posterior Datetime: 02/13/2018 13:52 Respirations: 17 Datetime: 02/12/2018 19:45 Strip Reviewed by: Melina Gates RN Unit Routine: [place] to Room; Monitoring; IV Pumps; Safety/Fall Risk Prevention; Bathroom [facility] Labor/Induction: Labor Stages; Cervical Ripening Medications: Cervical Ripening PTL/PROM: Hydration Related: Activity and Rest Grief Support: Medications Provider Notified (Name): Datetime: 02/12/2018 13:38 Medication Comments: buccal
== END 2018-02-16 15:50 | disposition home or self-care (01) | DRG 775 ==
LOC: WFO 07:55 → FBP 07:57 → WFO 08:59 → FBP 09:00 → OBSVTOIN 02-13 21:38
PROVIDERS: ADMIT Nurse Practitioner Obstetrics & Gynecology; ATTEND Nurse Practitioner Obstetrics & Gynecology
PROC: 10E0XZZ Delivery of Products of Conception, External Approach (ICD-10-PCS; principal; 2018-02-14)
PROC: 0HQ9XZZ Repair Perineum Skin, External Approach (ICD-10-PCS; 2018-02-14)
PROC: 3E0R3GC Introduction of Other Therapeutic Substance into Spinal Canal, Percutaneous Approach (ICD-10-PCS; 2018-02-16)
DX: O99.824 Streptococcus B carrier state complicating childbirth (principal); O26.893 Other specified pregnancy related conditions, third trimester; O70.0 First degree perineal laceration during delivery; O69.9XX0 Labor and delivery complicated by cord complication, unspecified, not applicable or unspecified; Z67.41 Type O blood, Rh negative; O89.4 Spinal and epidural anesthesia-induced headache during the puerperium; Z3A.39 39 weeks gestation of pregnancy; Z37.0 Single live birth
CPT/HCPCS: 83033; 85025; 86900; 86901; 96365; 96366

== ENCOUNTER 2023-03-19 15:55 | Emergency (ER) | payer OTHER ==
[2023-03-19 16:09] VITALS: O2SAT 100
[2023-03-19 16:14] LABS: BILIRUBIN,URINE NEGATIVE (NEGATIVE); GLUCOSE, URINE (UA) NEGATIVE (NEGATIVE); KETONES,URINE (UA) NEGATIVE (NEGATIVE); LEUKOCYTE ESTERASE, URINE NEGATIVE (NEGATIVE); NITRITE,URINE NEGATIVE (NEGATIVE); OCCULT BLOOD,URINE NEGATIVE (NEGATIVE); PH,URINE 7.5 PH (5.0-7.5); PROTEIN,URINE NEGATIVE (NEGATIVE); UROBILINOGEN,URINE 1 (NORMAL) E.U./dL (NORMAL)
[2023-03-19 16:15] LABS: CLARITY,URINE CLEAR (CLEAR)
--- NOTE | 2023-03-19 16:38 | ED Physician Documentation ---
PD HPI ABD PAIN - Stated complaint Stated Complaint: R FLANK PX - Chief complaint Chief Complaint: Abd Pain - History obtained from History obtained from: Patient - Additional information Additional information: 37-year-old female presents with right flank pain for the last several days. The patient has a history of kidney stones feels similar. She has required a stent in the past so has passed several on her own. Pain is fairly stinging in the right flank, does not radiate. It did go away for a day or so and then returned. She does not have any dysuria urgency or frequency, no difficulty s tarting urine flow. She has not had any fever or chills, no nausea or vomiting. She took ibuprofen without relief in her pain. Review of Systems Constitutional: reports: Reviewed and negative Cardiac: reports: Reviewed and negative Respiratory: reports: Reviewed and negative GI: reports: Abdominal Pain. denies: Abdominal Swelling, Nausea, Vomiting, Constipation, Diarrhea : denies: Dysuria, Frequency, Hesitancy, Unable to Void Skin: reports: Reviewed and negative Musculoskeletal: reports: Reviewed and negative PD PAST MEDICAL HISTORY - Past Medical History Past Medical History: Yes Cardiovascular: None Respiratory: None GI: None : Kidney stones - Past Surgical History Ortho: Other (knee scope) - Present Medications Home Medications: Ambulatory Orders Medication Instructions Recorded Confirmed No Known Home Medications 07/07/17 03/19/23 - Allergies Allergies/Adverse Reactions: Allergies Allergy/AdvReac Type Severity Reaction Status Date / Time No Known Drug Allergies Allergy Verified 07/07/17 12:21 - Social History Does the pt smoke?: No Smoking Status: Never smoker PD ED PE NORMAL - Vitals Vital signs reviewed: Yes - General General: Alert and oriented X 3, No acute distress, Well developed/nourished - HEENT HEENT: Atraumatic, Moist mucous membranes - Cardiac Cardiac: RRR, No murmur - Abdomen Abdomen: Normal bowel sounds, Soft - Back Back: No CVA TTP, Other (I could not induce the pain.) - Derm Derm: Normal color, Warm and dry Results - Vitals Vitals: Vital Signs - 24 hr 03/19/23 03/19/23 03/19/23 16:01 17:19 17:36 Temperature 36.1 C L 36.7 C Heart Rate 86 70 Respiratory 16 17 16 Rate Blood Pressure 138/89 H 131/82 H O2 Saturation 100 100 Oxygen O2 Source Room air - Labs Labs: Laboratory Tests 03/19/23 03/19/23 03/19/23 16:07 16:45 16:45 WBC 5.9 RBC 4.69 Hgb 14.1 Hct 42.7 MCV 91.0 MCH 30.1 MCHC 33.0 RDW 12.0 Plt Count 233 MPV 10.5 Neut # (Auto) 3.4 Lymph # (Auto) 2.0 [place] # (Auto) 0.4 Eos # (Auto) 0.1 Baso # (Auto) 0.0 Absolute Nucleated RBC 0.00 Nucleated RBC % 0.0 Sodium 139 Potassium 3.8 Chloride 105 Carbon Dioxide 28 Anion Gap 6.0 BUN 7 Creatinine 0.7 Estimated GFR (MDRD) 95 Glucose 93 Calcium 9.5 Urine Color YELLOW Urine Clarity CLEAR Urine pH 7.5 Ur Specific [place] 1.015 Urine Protein NEGATIVE Urine Glucose (UA) NEGATIVE Urine Ketones NEGATIVE Urine Occult Blood NEGATIVE Urine Nitrite NEGATIVE Urine Bilirubin NEGATIVE Urine Urobilinogen 1 (NORMAL) Ur Leukocyte Esterase NEGATIVE Ur Microscopic Review NOT INDICATED Urine Culture Comments NOT INDICATED - Rads (name of study) No standard instances Relevant Findings:: Final report received PD Medical Decision Making - ED course Complexity details: reviewed results, re-evaluated patient, considered differential, d/w patient ED course: 37-year-old female with a history of kidney stones presented with right flank pain That felt similar to prior kidney stones. Differentials considered included UTI, pyelonephritis, kidney stones, and less likely appendicitis or cholecystitis, constipation, colitis, diverticulitis.. The patient had reassuring urinalysis and advised without infection, that we could treat supportively with pain control and allow kidney stones pass however patient preferred to have labs and a CT scan. Labs were obtained and were reassuring, no sign of infection on the lab work, no leukocytosis, kidney function was normal. CT scan does not reveal kidney stones but rather there is some signs of prominent stool and she may have constipation. In any case, does not appear to there is an emergent cause of her abdominal pain at this time and I have recommended MiraLAX and increase oral fluids for her constipation and she can take Tylenol or ibuprofen as needed for the discomfort. I discussed return pre cautions if new or worsening symptoms. Departure - Departure Disposition: 01 Home, Self Care Clinical Impression: Constipation Qualifiers: Constipation type: unspecified constipation type Qualified Code(s): K59.00 - Constipation, unspecified Condition: Good Instructions: ED Constipation Comments: Your CT scan did not show any signs of kidney stone and your labs were stable today. There is evidence that he may be constipated so he may consider getting some [id number] medication such as MiraLAX to help have more regular stools. Please ensure you are drinking plenty of oral fluids and getting a varied diet to help with constipation. If you have new or worsening symptoms follow-up with your primary doctor or return to the ER. Forms: PCP List
[2023-03-19 16:52] LABS: BASOPHILS % (AUTO) 0.7 %; EOSINOPHILS # (AUTO) 0.1 10^3/uL (0.0-0.7); EOSINOPHILS % (AUTO) 1.5 %; HCT - HEMATOCRIT 42.7 % (37.0-47.0); HGB - HEMOGLOBIN 14.1 g/dL (12.0-16.0); LYMPHOCYTES % (AUTO) 33.7 %; MEAN CORPUSCULAR HEMOGLOBIN 30.1 pg (27.0-31.0); MEAN PLATELET VOLUME 10.5 fL (7.9-10.8); MONOCYTES # (AUTO) 0.4 10^3/uL (0.0-1.0); MONOCYTES % (AUTO) 6.2 %; NEUTROPHILS # (AUTO) 3.4 10^3/uL (1.5-6.6); NEUTROPHILS % (AUTO) 57.6 %; PLT - PLATELET COUNT 233 10^3/uL (130-450); RED BLOOD COUNT 4.69 10^6/uL (4.20-5.40); WHITE BLOOD COUNT 5.9 x10^3/uL (4.8-10.8)
[2023-03-19 17:06] LABS: CALCIUM 9.5 mg/dL (8.5-10.3); CREATININE 0.7 mg/dL (0.6-1.3); POTASSIUM 3.8 mmol/L (3.5-4.5)
[2023-03-19 17:39] VITALS: BP 131/82
--- NOTE | 2023-03-19 17:47 | CT Report ---
PROCEDURE: ABDOMEN/PELVIS WO INDICATIONS: right flank pain, prior stones TECHNIQUE: A CT scan of the abdomen and pelvis was performed without the use of intravenous contrast. Images we re recorded and evaluated at appropriate window settings. Reformats: coronal and sagittal. For radiat ion dose reduction, the following was used: automated exposure control, adjustment of mA and/or kV ac cording to patient size. COMPARISON: None. FINDINGS: Image quality: Excellent. Lung bases and heart: Unremarkable. Liver: Unremarkable. Gallbladder and biliary tree: Gallbladder is decompressed. Spleen: No splenomegaly. Pancreas: No pancreatic ductal dilation. Adrenals: No adrenal nodule. Kidneys and ureters: No hydronephrosis. No kidney stones. Bowel and peritoneum: Prominent stool the colon. No small bowel obstruction. The appendix is not dila reena. Lymph nodes: No central or retroperitoneal adenopathy. Vessels: No infrarenal aortic aneurysm. PELVIS Reproductive organs: Probable small right ovarian cyst. Anteverted uterus. Bladder: No stone. Pelvic lymph nodes: No pelvic adenopathy by size criteria. Bones: No aggressive osseous abnormality. Other: No significant ventral or inguinal hernia. IMPRESSION: 1. No hydronephrosis. No kidney stones. 2. Normal appendix. No free fluid. 3. Prominent stool the colon. Reviewed by: Dhruv Katz MD on 03/19/2023 5:46 PM PDT Approved by: Dhruv Katz MD on 03/19/2023 5:46 PM PDT Station ID: [id number]
== END 2023-03-19 17:57 | disposition home or self-care (01) ==
LOC: ED 15:55
DX: K59.00 Constipation, unspecified (principal)
CPT/HCPCS: 36415; 80048; 81001; 81003; 85025; 87086; 99283; 99284